=== PATIENT | male | born 1950 | race Caucasian/White ===

== ENCOUNTER 2016-11-27 10:43 | Emergency (ER) | payer MEDICARE, MEDICAID ==
[~2016-11-27] VITALS: Ht 190.5 cm; Wt 83.0 kg
[~2016-11-27 10:43] MED LIST: LORA-446 PO; MIRT30TA PO; ZOLP-413 PO
[2016-11-27] MEDS ORDERED: MELA3TAB PO (11:18)
[2016-11-27] MEDS ORDERED: LORazepam 1MG TABLET PO ONE (11:30)
[2016-11-27] MEDS ORDERED: LORazepam 1MG TABLET ONE (11:35)
[2016-11-27 12:33] VITALS: BP 129/85
== END 2016-11-27 12:35 | disposition home or self-care (01) ==
LOC: ED 10:57
DX: Z76.0 Encounter for issue of repeat prescription (principal); F41.1 Generalized anxiety disorder; R06.4 Hyperventilation; F43.10 Post-traumatic stress disorder, unspecified
CPT/HCPCS: 99283; 99284

== ENCOUNTER 2016-12-09 11:59 | Emergency (ER) | payer MEDICARE, MEDICAID ==
[~2016-12-09] VITALS: Ht 190.5 cm; Wt 84.7 kg
[~2016-12-09 11:59] MED LIST changes: +MELA3TAB PO
[2016-12-09] MEDS ORDERED: LORazepam 1MG TABLET PO ONE ×2 (13:00→14:30)
[2016-12-09] MEDS ORDERED: LORazepam 1MG TABLET ONE (14:07)
[2016-12-09 15:02] VITALS: BP 155/85
== END 2016-12-09 15:05 | disposition home or self-care (01) ==
LOC: ED 14:10
DX: F41.9 Anxiety disorder, unspecified (principal); F32.9 Major depressive disorder, single episode, unspecified; Z76.0 Encounter for issue of repeat prescription; I10 Essential (primary) hypertension; Z88.0 Allergy status to penicillin
CPT/HCPCS: 99284

== ENCOUNTER 2017-06-11 12:44 | Emergency (ER) | payer MEDICAID, MEDICARE ==
[~2017-06-11] VITALS: Ht 188 cm; Wt 89.7 kg
[~2017-06-11 12:44] MED LIST changes: -MELA3TAB PO; +MELA3TAB2 PO
[2017-06-11] MEDS ORDERED: KETOROLAC 30 MG/1 ML IVPush ONE (13:30)
[2017-06-11] MEDS ORDERED: SODIUM CHLORIDE 0.9% 1,000ML IVBOLUS ONE (13:30)
[2017-06-11] MEDS ORDERED: ACETAMINOPHEN 325 MG TABLET PO ONE (13:30)
[2017-06-11 13:42] LABS: BASOPHILS % (AUTO) 0 % (0-1); EOSINOPHILS # (AUTO) 0.01 x10^3/uL (0-0.4); EOSINOPHILS % (AUTO) 0 % (1-7); LYMPHOCYTES % (AUTO) 18 % (22-44); MD NO; MEAN CORPUSCULAR HEMOGLOBIN 33.2 pg (27.5-34.5); MEAN CORPUSCULAR VOLUME 97.6 fL (81-97); MEAN PLATELET VOLUME 8.7 fL (7.4-10.4); MONOCYTES # (AUTO) 0.59 x10^3/uL (0.2-0.8); MONOCYTES % (AUTO) 11 % (2-9); NEUTROPHILS # (AUTO) 3.66 x10^3/uL (1.8-6.8); NEUTROPHILS % (AUTO) 71 % (42-75); PLATELET COUNT 155 x10^3/uL (130-400); RED BLOOD COUNT 4.45 x10^6/uL (4.38-5.82); RED CELL DISTRIBUTION WIDTH 12.8 % (9.4-14.8)
[2017-06-11 13:52] LABS: ALBUMIN 3.6 g/dL (3.4-5.0); ANION GAP 9 mmol/L (5-15); CALCIUM 8.2 mg/dL (8.5-10.1); CHLORIDE 107 mmol/L (98-107)
[2017-06-11 13:56] LABS: ALANINE AMINOTRANSFERASE 72 U/L (12-78); ALKALINE PHOSPHATASE 99 U/L (45-117); BILIRUBIN,TOTAL 0.3 mg/dL (0.2-1.0); CREATININE 0.86 mg/dL (0.7-1.3); TOTAL PROTEIN 7.4 g/dL (6.4-8.2)
[2017-06-11] MEDS ORDERED: ACETAMINOPHEN 325 MG TABLET ONE (14:11)
[2017-06-11] MEDS ORDERED: KETOROLAC 30 MG/1 ML ONE (14:11)
[2017-06-11 16:03] VITALS: BP 115/76
== END 2017-06-11 16:06 | disposition home or self-care (01) ==
LOC: ED 15:40
DX: R05 Cough (principal); R50.9 Fever, unspecified; R19.7 Diarrhea, unspecified; I11.9 Hypertensive heart disease without heart failure; F10.20 Alcohol dependence, uncomplicated; Z88.0 Allergy status to penicillin
CPT/HCPCS: 36415; 80053; 85025; 96361; 96374; 99284; J1885; J7030

== ENCOUNTER 2017-07-30 08:32 | Emergency (ER) | payer MEDICARE, MEDICAID ==
[~2017-07-30] VITALS: Ht 190.5 cm; Wt 86.9 kg
[2017-07-30 08:36] VITALS: BP 184/97
[2017-07-30] MEDS ORDERED: LORA2TAB99 PO (09:10)
[2017-07-30] MEDS ORDERED: FAMOTIDINE 20 MG/2 ML IVP ONE (09:30)
[2017-07-30] MEDS ORDERED: MORPHINE SULFATE 4 MG/ML, 1ML IVPush PRN (09:30)
[2017-07-30] MEDS ORDERED: SODIUM CHLORIDE FLUSH 10ML SYR IVF ONE (09:30)
== END 2017-07-30 09:42 | disposition home or self-care (01) ==
LOC: ED 09:22
DX: F41.1 Generalized anxiety disorder (principal); I10 Essential (primary) hypertension; I11.9 Hypertensive heart disease without heart failure; F10.120 Alcohol abuse with intoxication, uncomplicated
CPT/HCPCS: 99284

== ENCOUNTER 2017-11-12 13:27 | Emergency (ER) | payer MEDICARE, MEDICAID ==
[~2017-11-12] VITALS: Ht 190.5 cm; Wt 86.6 kg
[~2017-11-12 13:27] MED LIST changes: +LORA2TAB99 PO
[2017-11-12 13:28] VITALS: BP 155/82
[2017-11-12] MEDS ORDERED: NAPR220C2 PO (14:42)
[2017-11-12] MEDS ORDERED: HYDR-3240 PO (14:42)
[2017-11-12] MEDS ORDERED: PERMETHRIN CRM 5%, 60GM ONE (14:56)
[2017-11-12] MEDS ORDERED: LORazepam 1MG TABLET ONE (14:56)
[2017-11-12] MEDS: PERMETHRIN CRM 5%, 60GM TP SCH ×2 (14:59→16:36)
[2017-11-12] MEDS ORDERED: LORazepam 1MG TABLET PO ONE (15:00)
== END 2017-11-12 16:37 | disposition home or self-care (01) ==
LOC: ED 16:17
DX: F41.1 Generalized anxiety disorder (principal); R06.4 Hyperventilation; I10 Essential (primary) hypertension; F32.9 Major depressive disorder, single episode, unspecified; Z88.0 Allergy status to penicillin
CPT/HCPCS: 99284

== ENCOUNTER 2017-11-14 11:21 | Emergency (ER) | payer MEDICARE, MEDICAID ==
[~2017-11-14 11:21] MED LIST changes: +HYDR-3240 PO; +NAPR220C2 PO
[2017-11-14] MEDS ORDERED: LORazepam 1MG TABLET PO ONE (12:00)
[2017-11-14] MEDS ORDERED: LORazepam 1MG TABLET ONE (12:15)
[2017-11-14 12:26] LABS: BASOPHILS # (AUTO) 0.01 x10^3/uL (0-0.1); BASOPHILS % (AUTO) 0 % (0-1); EOSINOPHILS # (AUTO) 0.03 x10^3/uL (0-0.4); EOSINOPHILS % (AUTO) 0 % (1-7); LYMPHOCYTES # (AUTO) 0.84 x10^3/uL (1-3.4); LYMPHOCYTES % (AUTO) 12 % (22-44); MD NO; MEAN CORPUSCULAR HEMOGLOBIN 33.3 pg (27.5-34.5); MEAN CORPUSCULAR HGB CONC 33.5 g/dL (33.2-36.2); MEAN CORPUSCULAR VOLUME 99.3 fL (81-97); MEAN PLATELET VOLUME 7.2 fL (7.4-10.4); MONOCYTES # (AUTO) 0.31 x10^3/uL (0.2-0.8); MONOCYTES % (AUTO) 4 % (2-9); NEUTROPHILS % (AUTO) 84 % (42-75); PLATELET COUNT 178 x10^3/uL (130-400); RED BLOOD COUNT 4.27 x10^6/uL (4.38-5.82); RED CELL DISTRIBUTION WIDTH 16.4 % (9.4-14.8)
[2017-11-14 12:34] LABS: ALBUMIN 3.4 g/dL (3.4-5.0); ANION GAP 10 mmol/L (5-15); CALCIUM 8.2 mg/dL (8.5-10.1); CHLORIDE 109 mmol/L (98-107)
[2017-11-14 12:38] LABS: ALANINE AMINOTRANSFERASE 25 U/L (12-78); ALKALINE PHOSPHATASE 69 U/L (45-117); BILIRUBIN,TOTAL 0.8 mg/dL (0.2-1.0); CREATININE 0.93 mg/dL (0.7-1.3); SALICYLATE LEVEL 1.8 mg/dL (2.8-20.0)
[2017-11-14 12:42] LABS: AMPHETAMINE SCREEN, URINE Negative (Negative); BARBITURATE SCREEN, URINE Negative (Negative); BENZODIAZEPINE SCREEN, URINE Negative (Negative); CANNABINOID SCREEN, URINE Negative (Negative); COCAINE SCREEN, URINE Negative (Negative); METHADONE SCREEN, URINE Negative (Negative); OPIATE SCREEN, URINE Negative (Negative)
[2017-11-14 12:45] LABS: ACETAMINOPHEN < 2 mcg/mL (10-30)
[2017-11-14] MEDS ORDERED: IBUPROFEN 200 MG TABLET ONE (19:09)
[2017-11-14] MEDS ORDERED: IBUPROFEN 200 MG TABLET PO ONE (19:30)
[2017-11-14] MEDS ORDERED: LORazepam 2 MG/ML, 1ML ONE (22:12)
[2017-11-14] MEDS ORDERED: LORazepam 2 MG/ML, 1ML IM ONE (22:30)
[2017-11-14 22:32] VITALS: BP 121/74
== END 2017-11-14 22:37 | disposition home or self-care (01) ==
LOC: ED 21:11
DX: F10.220 Alcohol dependence with intoxication, uncomplicated (principal); F32.9 Major depressive disorder, single episode, unspecified; F41.1 Generalized anxiety disorder; I10 Essential (primary) hypertension
CPT/HCPCS: 36415; 80053; 80307; 80329; 85025; 96372; 99284; J2060; G0480